=== PATIENT | male | born 1970 | race African-American/Black ===

== ENCOUNTER 2016-12-24 23:39 | Emergency (ER) | payer OTHER ==
[~2016-12-24 23:39] MED LIST: ACETAMINOPHEN PO; ASPIRIN ENTERI325 M1 PO; ASPIRIN81 M1 PO; BACTRIM DS TABL1 TA1 PO; CARAFATE1 G PO; CIPRO PO; HYDROCODON-ACE1 EAC7; HYDROCODON-ACE1 EAC7 PO; KEFLEX500 MG PO; LISINOPRIL-HCTZ1 T21 PO; LOPRESSOR PO; MACROBID100 MG PO; METROGEL-VAGINA70 GM VG; METRONIDAZOLE PO; NO MEDICATIONS; OMEPRAZOLE20 M2 PO; PERCOCET5/325 PO; PHENERGAN PO; PHENERGAN25 MG PO; PYRIDIUM100 MG PO; TYLOX1 CAP 5/50 PO; ZYVOX600 MG PO
== END 2016-12-24 23:40 | disposition home or self-care (01) ==
LOC: CED 23:39
DX: Z53.21 Procedure and treatment not carried out due to patient leaving prior to being seen by health care provider (principal)

== ENCOUNTER 2016-12-25 08:59 | Emergency (ER) | payer OTHER ==
--- NOTE | ~2016-12-25 | CR181 ---
[facility] A Service of [facility] & [facility] RADIOLOGY TEXT RESULTS PATIENT: SHMUEL BOYD LOCATION: [facility] : 72 UNIT #: [id number] AGE: [address]: Madisyn Avina APRN SEX: M ORDER DR: [id number] [facility] [address] [place], [place] [address] [id number] E MR#: [id number] #: [id number] NAME: SHMUEL BOYD : 1970 SEX: M STUDY DATE/TIME: UNIT: CFTX ROOM: STUDY DESCRIPTION: CR Lumbar Spine 2 or 3 Views Attending Physician: Madisyn Avina A.P.R.N. Ordering Physician: Ed Fredrick Garcia M.D. Primary Care Physician: Primary Care Physician No MEDICAL IMAGING REPORT This report is preliminary unless electronic signature is present EXAM Lumbar spine series 12/25/2016 1029 hours HISTORY 46-year-old man complaining of low back pain for 3 days with history of sciatica for 2 years. Acute onset of pain after lifting a trampoline box weighing approximately 180 pounds off a shelf. COMPARISON MRI 05/26/2014, CT abdomen and pelvis 06/19/2016 FINDINGS AP and lateral views of lumbar spine and a cone lateral view lumbosacral junction were performed. There are 5 non-rib bearing lumbar type vertebrae which are normally aligned. There is minimal endplate spurring. No vertebral body or disc height loss. The facet joints appear normal. There is mild sclerotic change right greater than left sacroiliac joints. IMPRESSION 1. No vertebral body or disc height loss. No fracture or subluxation. 2. 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 This finding is stable. Dictated by... Lisa Brian M.D. THIS IS AN ELECTRONICALLY VERIFIED REPORT Lisa Brian M.D. at 12/25/2016 2:35 PM SHANIM/monse TD: 12/25/2016 11:58 JOB #: [id number] [facility] A Service of [facility] & [facility] RADIOLOGY TEXT RESULTS PATIENT: SHMUEL BOYD LOCATION: [facility] : 72 UNIT #: [id number] AGE: [address]: Madisyn Avina APRN SEX: M ORDER DR: MEDICAL IMAGING REPORT Page 1 of 1 COPY
== END 2016-12-25 11:42 | disposition home or self-care (01) ==
LOC: CED 08:59 → CFTX 08:59
DX: M54.41 Lumbago with sciatica, right side (principal); S46.211A Strain of muscle, fascia and tendon of other parts of biceps, right arm, initial encounter; I10 Essential (primary) hypertension; X50.9XXA Other and unspecified overexertion or strenuous movements or postures, initial encounter
CPT/HCPCS: 72100; 96372; 99283; J1885